=== PATIENT | female | born 1980 | race African-American/Black ===

== ENCOUNTER 2024-06-13 18:17 | Emergency (ER) | payer OTHER ==
[2024-06-13 19:26] LABS: #Basophils 0.06 10x3/uL (0.0-0.2); %Basophils 0.9 % (0.0-1.0); %Eosinophils 2.1 % (0.0-10.0); %Lymphocytes 30.3 % (21.0-51.0); %Monocytes 6.7 % (0.0-10.0); %Neutrophils 59.9 % (42.0-75.0); Hematocrit 32.1 % (36.0-47.0); Hemoglobin 8.8 g/dL (12.0-16.0); Mean Corpuscular HGB CONC 27.4 g/dL (32.0-36.0); Mean Corpuscular Hemoglobin 17.2 pg (27.0-31.0); Mean Corpuscular Volume 62.8 fL (78.0-98.0); Platelet Count 316 10x3/uL (130-400); RBC Distribution Width 18.8 % (11.5-14.5); Red Blood Cell (RBC) Count 5.11 mill/uL (4.20-5.40); Reflex for Review?? YES
[2024-06-13 19:37] LABS: ALT (SGPT) 8 U/L (8-55); AST (SGOT) 9 U/L (5-34); Albumin 3.5 g/dL (3.5-5.0); Alkaline Phosphatase 72 U/L (40-110); Anion Gap 13 mmol/L (10-20); BUN (Urea Nitrogen) 13 mg/dL (7.0-18.7); Bilirubin, Total 0.3 mg/dL (0.2-1.2); Calc. Creatinine Clearance 0 mL/min (70-130); Calcium 8.7 mg/dL (7.8-10.44); Carbon Dioxide 24 mmol/L (22-29); Chloride 100 mmol/L (98-107); Estimated GFR 109; Glucose 322 mg/dL (70-105); Potassium 3.3 mmol/L (3.5-5.1); Protein, Total 7.5 g/dL (6.0-8.3); Sodium 134 mmol/L (136-145)
[2024-06-13 20:00] LABS: Band 1 % (5-11); Elliptocytes MODERATE= 6-15 cells HPF (0-1); Eosinophils 3 % (0-10); Hypochromia SLIGHT = 6-15 cells HPF (0-5); Lymphocytes 23 % (21-51); Monocytes 4 % (0-10); Neutrophil 69 % (42-75); Platelet Adequacy Comment Platelets Normal; Target Cells SLIGHT = 2-5 cells HPF (0-1)
[2024-06-13 21:16] LABS: BHCG - Serum Negative (NEGATIVE); Pregs Control Background? CLEAR/WHITE (CLR/WHITE); Pregs Control Bar Appear? YES (CONTROL BAR)
[2024-06-13 21:36] LABS: Troponin I Less than 0.010 ng/mL (< 0.028)
== END 2024-06-13 23:07 | disposition home or self-care (01) ==
LOC: ERS 18:17
DX: R04.2 Hemoptysis (principal); D64.9 Anemia, unspecified; R07.9 Chest pain, unspecified
CPT/HCPCS: 36415; 71045; 71275; 80053; 84484; 84703; 85025; 85060; 93005

== ENCOUNTER 2025-04-19 06:17 | Emergency (ER) | payer SELFPAY ==
[2025-04-19] MEDS ORDERED: HYDROcodone/Acetaminophen 5/325 mg Tablet ONE (08:13)
== END 2025-04-19 08:45 | disposition home or self-care (01) ==
LOC: ERS 06:17
DX: B37.31 Acute candidiasis of vulva and vagina (principal); E11.9 Type 2 diabetes mellitus without complications; I10 Essential (primary) hypertension; Z79.84 Long term (current) use of oral hypoglycemic drugs
CPT/HCPCS: 99283